=== PATIENT | female | born 1940 | race Caucasian/White ===

== ENCOUNTER → 2017-01-03 | Outpatient (CLI) | payer MEDICARE, OTHER ==
[~2017-01-03] MED LIST: AMLO-218 PO; ASPI81TA50 PO; CALC500T99 PO; CARV25TA43 PO; CLON-230 PO; ENAL20TA77 PO; ERGO50007 PO; HYDR25TA6 PO; HYDR25TA98 PO; ISOS30TA55 PO; MECL-77 PO; MELO-37 PO; OMEP20CA9 PO; OXYB5TAB7 PO; SERT100T PO
--- NOTE | 2017-01-03 12:58 | RADRPT ---
PROCEDURE: XR Chest. CLINICAL INDICATION: Preoperative examination TECHNIQUE: PA and lateral chest x-ray. COMPARISON: 10/19/2012 chest radiograph. FINDINGS: Mild elevation of the left hemidiaphragm is unchanged. The lungs are clear. No pleural effusion or pneumothorax. The cardiomediastinal silhouette is unremarkable. Moderate multilevel thoracic spondylosis is present. Vascular calcifications of the aorta are present compatible with atherosclerosis. IMPRESSION: No evidence of acute air space infiltrates. Unchanged from the previous examination. RPTAT: AADD .Oscar Green MD, MD Date Time Electronically viewed and signed by .Oscar Green MD, MD on 01/03/2017 12:58 .B/
== END | disposition home or self-care (01) ==
LOC: RAD 10:30
PROVIDERS: ATTEND Internal Medicine
DX: R05 Cough (principal)
CPT/HCPCS: 71020